=== PATIENT | female | born 1960 | race Caucasian/White ===

== ENCOUNTER 2019-01-04 18:44 | Inpatient (IN) | payer MEDICAID, OTHER ==
[~2019-01-04] VITALS: Ht 152.4 cm; Wt 75.0 kg
[2019-01-04] MEDS ORDERED: ONDANSETRON 4 MG INJ IV STA ×2 (18:52→19:26)
[2019-01-04] MEDS ORDERED: SOD CHLORIDE 0.9% 1,000 ML IV STA (18:52)
[2019-01-04] MEDS ORDERED: morphine 4 MG/ML VIAL IV STA ×2 (18:52→19:26)
--- NOTE | 2019-01-04 18:53 | ERD ---
ER Documentation Chief Complaint Chief Complaint severe left sided flank pain x1hr ago acute gradual; denies dysuria/hematur HPI 58-year-old female presenting with severe left-sided flank pain that started about 1 hour ago. She states that it started in her left lower quadrant then suddenly went to her back. Pain is severe, stabbing, with no alleviating factors. Rated at a 10 out of 10. Worse with deep inspiration. No chest pain, shortness of breath, cough, recent illness, fever, chills, dysuria or hematuria. Has a remote history of right-sided kidney stones. ROS All systems reviewed and are negative except as per history of present illness. PMhx/Soc History of Surgery: Yes ( x1) Anesthesia Reaction: No Hx Neurological Disorder: No Hx Respiratory Disorders: No Hx Cardiac Disorders: No Hx Psychiatric Problems: No Hx Miscellaneous Medical Probl: Yes (rt sided kidney stone many years ago) Hx Alcohol Use: No Hx Substance Use: No Hx Tobacco Use: No Smoking Status: Never smoker FmHx Family History: No diabetes Physical Exam Vitals Vital Signs Date Temp Pulse Resp B/P (MAP) Pulse Ox O2 O2 Flow FiO2 Time Delivery Rate 01/04/19 70 22 64/ 96 Nasal 2.0 20:13 Cannula 01/04/19 97.7 81 26 132/76 100 18:48 (94) Physical Exam Const: Significant distress secondary to pain, pale Head: Atraumatic Eyes: Normal Conjunctiva ENT: Normal External Ears, Nose and Mouth. Neck: Full range of motion. No meningismus. Resp: Clear to auscultation bilaterally Cardio: Regular rate and rhythm, no murmurs 2+ distal pulses in all 4 e xtremities Abd: Soft, left mid abdomen tender to deep palpation. No rebound or guarding. No pulsatile masses., non distended. Normal bowel sounds Skin: No petechiae or rashes Back: Left CVA tenderness Ext: No cyanosis, or edema Neur: Awake and alert, moving all extremities, normal speech, no facial asymmetry Psych: Normal Mood and Affect Result Diagram: 01/04/19185801/04/191858 Results 24 hrs Laboratory Tests Test 01/04/19 18:59 01/04/19 19:33 White Blood Count 5.9 10^3/ul Red Blood Count 4.07 10^6/ul Hemoglobin 12.2 g/dl Hematocrit 36.7 % Mean Corpuscular Volume 90.2 fl Mean Corpuscular Hemoglobin 30.0 pg Mean Corpuscular Hemoglobin Concent 33.2 g/dl Red Cell Distribution Width 13.2 % Platelet Count 418 10^3/UL Mean Platelet Volume 8.5 fl Immature Granulocytes % 0.300 % Neutrophils % 45.1 % Lymphocytes % 43.1 % Monocytes % 8.5 % Eosinophils % 2.2 % Basophils % 0.8 % Nucleated Red Blood Cells % 0.0 /100WBC Immature Granulocytes # 0.020 10^3/ul Neutrophils # 2.7 10^3/ul Lymphocytes # 2.6 10^3/ul Monocytes # 0.5 10^3/ul Eosinophils # 0.1 10^3/ul Basophils # 0.1 10^3/ul Nucleated Red Blood Cells # 0.0 10^3/ul Sodium Level 138 mmol/L Potassium Level 3.4 mmol/L Chloride Level 106 mmol/L Carbon Dioxide Level 26 mmol/L Anion Gap 6 Blood Urea Nitrogen 21 mg/dl Creatinine 0.60 mg/dl Est Glomerular Filtrat Rate mL/min > 60 mL/min Glucose Level 95 mg/dl Calcium Level 9.4 mg/dl Urine Color YELLOW Urine Clarity SLIGHTLY CLOUDY Urine pH 5.0 Urine Specific [place] 1.019 Urine Ketones NEGATIVE mg/dL Urine Nitrite NEGATIVE mg/dL Urine Bilirubin NEGATIVE mg/dL Urine Urobilinogen NEGATIVE mg/dL Urine Leukocyte Esterase 2+ Calixto/ul Urine Microscopic RBC 2 /HPF Urine Microscopic WBC 7 /HPF Urine Squamous Epithelial Cells FEW /HPF Urine Bacteria FEW /HPF Urine Mucus MODERATE /HPF Urine Hemoglobin NEGATIVE mg/dL Urine Glucose NEGATIVE mg/dL Urine Total Protein NEGATIVE mg/dl Current Medications Medications Dose Sig/Sarah Start Time Status Last (Trade) Ordered Route PRN Stop Time Admin Dose Reason Admin Sodium 1,000 ml @ Q1H STAT 01/04/19 DC 01/04/19 Chloride 1,000 mls/hr IV 18:52 18:57 01/04/19 19:51 Morphine 4 mg ONCE STAT 01/04/19 DC 01/04/19 Sulfate IV 18:52 18:56 (morphine) 01/04/19 18:53 Ondansetron 4 mg ONCE STAT 01/04/19 DC 01/04/19 HCl (Zofran IV 18:52 18:56 Inj) 01/04/19 18:53 Morphine 4 mg ONCE STAT 01/04/19 DC 01/04/19 Sulfate IV 19:26 19:32 (morphine) 01/04/19 19:27 Ondansetron 4 mg ONCE STAT 01/04/19 DC 01/04/19 HCl (Zofran IV 19:26 19:31 Inj) 01/04/19 19:27 1 mg ONCE STAT 01/04/19 DC 01/04/19 Hydromorphone IV 19:59 20:02 HCl 01/04/19 20:00 (Dilaudid) Procedures/MDM EMERGENT LABS AND DIAGNOSTIC STUDIES: Lab Results above were reviewed and interpreted by me. CBC: Borderline thrombocytosis, likely stress response. No anemia or evidence of infection BMP: No evidence of electrolyte abnormality, renal failure, hypoglycemia UA: hematuria. 2+ leuk esterase but no bacteria or white blood cells 12-lead EKG was interpreted by Rahel Disla MD: Normal Sinus Rhythm Normal axis Normal intervals No acute ST or T wave changes suggestive of acute ischemia or STEMI. Radiology Results as interpreted by Radiology below were reviewed by Rafal Disla MD: CT abdomen and pelvis: 1. Obstruction of the left ureter at the ureteropelvic junction by a large irregular stone with a long axis of 12 mm and short axis of 7-8 mm. 2. Distended gallbladder without definite evidence of inflammation. 3. Intrauterine contraceptive device in typical position. Initial Nursing notes reviewed. Previous Medical Records requested via the Electronic Health Record. EMERGENCY DEPARTMENT COURSE / MEDICAL DECISION MAKING: Patient is presenting with acute left flank pain and CT that shows a large stone in her UPJ. I do not suspect associated pyelonephritis. She did receive multiple doses of pain medications without improvement of her symptoms. At this point, I do not feel she is appropriate for discharge as her pain is not well controlled. I spoke with the hospitalist on-call, who agreed to admit the patient. He requested consultation by the urologist on-call, . This was done. Departure Diagnosis: Primary Impression: Hydronephrosis due to obstruction of ureter Additional Impressions: Renal colic on left side Intractable pain Condition: AKILA Huggins MD Jan 04, 2019 18:53
[2019-01-04] MEDS ORDERED: HYDROmorphONE 2 MG/ML SYG IV STA (19:59)
[2019-01-04] MEDS ORDERED: KETOROLAC 30 MG INJ IV STA (20:28)
[2019-01-04] MEDS ORDERED: ACETAMINOPHEN 325 MG TAB PO PRN (21:00)
[2019-01-04] MEDS ORDERED: ONDANSETRON 4 MG INJ IV PRN (21:00)
[2019-01-04 21:30] VITALS: BP 132/66; PULSE 79; RESP 18
[2019-01-04 21:42] VITALS: Ht 152.4 cm; Wt 75.0 kg
[2019-01-04 21:47] VITALS: BP 132/65; PULSE 74; RESP 18
[2019-01-04] MEDS ORDERED: morphine 4 MG/ML VIAL IV PRN (23:00)
--- NOTE | 2019-01-04 23:34 | HP ---
Date/Time of Note Date/Time of Note DATE: 01/04/19 TIME: 23:34 Assessment/Plan VTE Prophylaxis Risk score (from Nsg)>0 risk: 1 SCD applied (from Nsg): Yes Pharmacological prophylaxis: heparin Lines/Catheters IV Catheter Type (from Nrsg): Saline Lock Assessment/Plan Assessment/Plan 1. Large obstructive left ureteral stone -IV fluid -Pain management -Flomax -Strain urine -Urology consult -Follow-up urine culture 2. Left flank pain, secondary to above 3. Distended gallbladder: Incidental finding. Per CT no definite evidence of inflammation -Monitor for now -Consider surgical consult Result Diagram: 01/04/19185801/04/191858 Results 24hrs Laboratory Tests Test 01/04/19 18:59 01/04/19 19:33 White Blood Count 5.9 Red Blood Count 4.07 L Hemoglobin 12.2 Hematocrit 36.7 L Mean Corpuscular Volume 90.2 Mean Corpuscular Hemoglobin 30.0 Mean Corpuscular Hemoglobin Concent 33.2 Red Cell Distribution Width 13.2 Platelet Count 418 H Mean Platelet Volume 8.5 Immature Granulocytes % 0.300 Neutrophils % 45.1 Lymphocytes % 43.1 Monocytes % 8.5 Eosinophils % 2.2 Basophils % 0.8 Nucleated Red Blood Cells % 0.0 Immature Granulocytes # 0.020 Neutrophils # 2.7 Lymphocytes # 2.6 Monocytes # 0.5 Eosinophils # 0.1 Basophils # 0.1 Nucleated Red Blood Cells # 0.0 Sodium Level 138 Potassium Level 3.4 L Chloride Level 106 Carbon Dioxide Level 26 Anion Gap 6 Blood Urea Nitrogen 21 H Creatinine 0.60 Est Glomerular Filtrat Rate mL/min > 60 Glucose Level 95 Calcium Level 9.4 Urine Color YELLOW Urine Clarity SLIGHTLY CLOUDY A Urine pH 5.0 Urine Specific [place] 1.019 Urine Ketones NEGATIVE Urine Nitrite NEGATIVE Urine Bilirubin NEGATIVE Urine Urobilinogen NEGATIVE Urine Leukocyte Esterase 2+ H Urine Microscopic RBC 2 Urine Microscopic WBC 7 H Urine Squamous Epithelial Cells FEW Urine Bacteria FEW A Urine Mucus MODERATE Urine Hemoglobin NEGATIVE Urine Glucose NEGATIVE Urine Total Protein NEGATIVE HPI/ROS Admit Date/Time Admit Date/Time Jan 04, 2019 at 20:42 Hx of Present Illness This is a 58-year-old female with no significant past medical history who presented to ER complaining of left flank pain which started several hours prior to arrival to the ER. Pain has been severe. Reported nausea, no vomiting. Will present to the ER, CT abdomen/pelvis shows a large obstructive left ureteral stone at the ureteropelvic junction and distended gallbladder without definite evidence of inflammation. PMH/Family/Social Past Medical History Past Surgical History Past Surgical Hx: other (see hpi) Family History Significant Family History: other Social History Smoking Status: Unknown if ever smoked Drug Use: other Exam Constitutional: other (no acute distress) Eyes: EOMI, PERRL Neck: supple Respiratory: normal air movement Cardiovascular: nl pulses Gastrointestinal: soft Extremities: normal pulses Medications Current Medications Ondansetron HCl (Zofran Inj) 4 mg BRIDGE ORDER PRN IV NAUSEA/VOMITING; Start 01/04/19 at 21:00; Stop 01/05/19 at 20:59 Acetaminophen (Tylenol Tab) 650 mg ER BRIDGE PRN PO .MILD PAIN 1-3 OR TEMP; Start 01/04/19 at 21:00; Stop 01/05/19 at 20:59 Morphine Sulfate (morphine) 4 mg Q4H PRN IV SEVERE PAIN LEVEL 7-10 Last administered on 01/04/19at 22:58; Admin Dose 4 MG; Start 01/04/19 at 23:00 Coded Allergies: No Known Allergy (Unverified , 01/05/19) Exam/Review of Systems Vital Signs Vitals Vital Signs Date Temp Pulse Resp B/P (MAP) Pulse Ox O2 O2 Flow FiO2 Time Delivery Rate 01/04/19 97.9 74 18 132/65 98 Room Air 21:47 (87) 01/04/19 2.0 21:07 LUDIN PENG MD Jan 04, 2019 23:34
[2019-01-05] MEDS ORDERED: TAMSULOSIN (SR) 0.4 MG CAP PO ONE
[2019-01-05] MEDS ORDERED: HYDROCODONE/APAP (5/325) TAB PO PRN
[2019-01-05] MEDS ORDERED: NACL 0.9% 3 ML SYG IV SCH
[2019-01-05] MEDS ORDERED: ONDANSETRON 4 MG INJ IV PRN
[2019-01-05] MEDS ORDERED: ALBUTEROL/IPRATROPIUM (NEB) 3 ML AMP HHN PRN
[2019-01-05] MEDS: SOD CHLORIDE 0.9% 1,000 ML IV SCH ×3 (01:21→21:42)
[2019-01-05] MEDS: CEFTRIAXONE 1 GM/50 ML (PMX) 50 ML IVPB SCH ×2 (01:21→23:54)
[2019-01-05] MEDS: HYDROCODONE/APAP (5/325) TAB PO PRN (01:37)
[2019-01-05] MEDS ORDERED: POTASSIUM CHLORIDE (SR) 20 MEQ TAB PO ONE (01:48)
[2019-01-05 02:00] VITALS: BP 113/66; PULSE 77; RESP 18
[2019-01-05 07:47] VITALS: BP 114/56; PULSE 72; RESP 18
[2019-01-05 14:56] VITALS: BP 118/63; PULSE 83; RESP 20
--- NOTE | 2019-01-05 17:08 | CONS ---
Assessment/Plan Assessment/Plan Hospital Course (Demo Recall) 58-year-old female had severe left flank pain with nausea and vomiting on 01/04/2019. She also felt cold sweats. She came in to the emergency room and a CT scan of the abdomen and pelvis was done at that showed: 1. Obstruction of the left ureter at the ureteropelvic junction by a large irregular stone with a long axis of 12 mm and short axis of 7-8 mm. 2. Distended gallbladder without definite evidence of inflammation. 3. Intrauterine contraceptive device in typical position. The patient was therefore admitted and a urological consultation was requested. The patient denies any prior history of kidney stone. She denies any lower urinary tract symptoms. On the examination she has tenderness in the left flank area. The stone that she has is located in the upper ureter and it is large and measures 12 x 7-8 mm. She will need to have a cystoscopy and insertion of JJ stent. And then at a later date she will need either a cystoscopy, left ureteroscopy, laser lithotr ipsy and removal and replacement of the left ureteral JJ stent or extra corporeal shockwave lithotripsy if the stone moves back into the kidney. I did explain to the patient in Urdu with her nurse present in the room that we will put the JJ stent here and then she will have to follow-up with [facility] to remove the stone and also remove the JJ stent. She did understand that and she is agreeable to proceed. Consultation Date/Type/Reason Admit Date/Time Jan 04, 2019 at 20:42 Date of Consultation: Jan 05, 2019 Type of Consult Urology Reason for Consultation Left upper ureteral stone with hydronephrosis Requesting Provider: LUDIN PENG MD Date/Time of Note DATE: 01/05/19 TIME: 16:58 Hx of Present Illness 58-year-old female had severe left flank pain with nausea and vomiting on 01/04/2019. She also felt cold sweats. She came in to the emergency room and a CT scan of the abdomen and pelvis was done at that showed: 1. Obstruction of the left ureter at the ureteropelvic junction by a large irregular stone with a long axis of 12 mm and short axis of 7-8 mm. 2. Distended gallbladder without definite evidence of inflammation. 3. Intrauterine contraceptive device in typical position. The patient was therefore admitted and a urological consultation was requested. The patient denies any prior history of kidney stone. She denies any lower urinary tract symptoms. Constitutional: no complaints, other (Cold sweats on admission) ENT: no complaints Respiratory: no complaints; No wheezing Cardiovascular: no complaints Gastrointestinal: nausea (On admission), vomiting (On admission) Genitourinary: flank pain (Left side); No dysuria, No hematuria Musculoskeletal: no complaints Skin: no complaints Neurologic: no complaints Endocrine: no complaints Psychological: no complaints Past Medical History Medications Current Medications Ondansetron HCl (Zofran Inj) 4 mg BRIDGE ORDER PRN IV NAUSEA/VOMITING; Start 01/04/19 at 21:00; Stop 01/05/19 at 20:59 Acetaminophen (Tylenol Tab) 650 mg ER BRIDGE PRN PO .MILD PAIN 1-3 OR TEMP; Start 01/04/19 at 21:00; Stop 01/05/19 at 20:59 Morphine Sulfate (morphine) 4 mg Q4H PRN IV SEVERE PAIN LEVEL 7-10 Last administered on 01/04/19at 22:58; Admin Dose 4 MG; Start 01/04/19 at 23:00 Sodium Chloride 1,000 ml @ 100 mls/hr Q10H IV Last administered on 01/05/19at 11:44; Admin Dose 100 MLS/HR; Start 01/04/19 at 23:31 IV Flush (NS 3 ml) 3 ml PER PROTOCOL IV ; Start 01/05/19 at 00:00 Ondansetron HCl (Zofran Inj) 4 mg Q6H PRN IV NAUSEA/VOMITING; Start 01/05/19 at 00:00 Acetaminophen (Tylenol Tab) 650 mg Q6H PRN PO .PAIN 1-3 OR TEMP; Start 01/05/19 at 00:00 Acetaminophen/ Hydrocodone Bitart ([place] (5/325)) 1 tab Q6H PRN PO .MOD PAIN 4- 6; Start 01/05/19 at 00:00 Acetaminophen/ Hydrocodone Bitart ([place] (5/325)) 2 tab Q6H PRN PO .SEVERE PAIN 7-10 Last administered on 01/05/19at 01:37; Admin Dose 2 TAB; Start 01/05/19 at 00:00 Albuterol/ Ipratropium (Duoneb) 3 ml Q2H RESP THERAPY PRN HHN SHORTNESS OF BREATH; Start 01/05/19 at 00:00 Ceftriaxone Sodium 50 ml @ 100 mls/hr Q24H IVPB Last administered on 01/05/19at 01:21; Admin Dose 100 MLS/HR; Start 01/05/19 at 00:00 Allergies: Coded Allergies: Unknown: Unable to obtain (Unverified , 01/04/19) Past Surgical History Past Surgical Hx: other ( x1) Social History Alcohol Use: none Smoking Status: Current every day smoker (2 cigarettes a day) Drug Use: none Other Social History She is a 4, para 4, 1 and 3 normal deliveries Exam/Review of Systems Exam Vitals Vital Signs Date Temp Pulse Resp B/P (MAP) Pulse Ox O2 O2 Flow FiO2 Time Delivery Rate 01/05/19 98.2 83 20 118/63 96 Room Air 14:56 (81) 01/04/19 2.0 21:07 Intake and Output 01/04/19 01/04/19 01/05/19 1515:00 23:00 07:00 IntakeIntake Total 200 ml 50 ml OutputOutput Total 200 ml BalanceBalance 0 ml 50 ml Constitutional: alert, oriented Psych: no complaints Head: normocephalic Eyes: nl conjunctiva ENMT: nl external ears & nose Neck: supple Respiratory: normal air movement; No wheezing Cardiovascular: regular rate and rhythm; No jugular venous distention (JVD) Gastrointestinal: soft, non-tender Genitourinary - Female: CVA tenderness (Left flank), other (The patient does have an IUD but she had no periods since age 52.) Results Result Diagram: 01/05/19 0444 01/05/19 0444 Results 24hrs Laboratory Tests Test 01/04/19 18:59 01/04/19 19:33 01/05/19 04:44 White Blood Count 5.9 7.2 # Red Blood Count 4.07 L 3.63 L Hemoglobin 12.2 10.9 L Hematocrit 36.7 L 33.2 L Mean Corpuscular Volume 90.2 91.5 Mean Corpuscular Hemoglobin 30.0 30.0 Mean Corpuscular 33.2 32.8 Hemoglobin Concent Red Cell Distribution Width 13.2 13.2 Platelet Count 418 H 362 Mean Platelet Volume 8.5 8.7 Immature Granulocytes % 0.300 0.400 Neutrophils % 45.1 77.1 H Lymphocytes % 43.1 17.2 Monocytes % 8.5 4.9 Eosinophils % 2.2 0.1 Basophils % 0.8 0.3 Nucleated Red Blood Cells % 0.0 0.0 Immature Granulocytes # 0.020 0.030 Neutrophils # 2.7 5.6 Lymphocytes # 2.6 1.2 Monocytes # 0.5 0.4 Eosinophils # 0.1 0.0 Basophils # 0.1 0.0 Nucleated Red Blood Cells # 0.0 0.0 Sodium Level 138 141 Potassium Level 3.4 L 4.6 Chloride Level 106 112 H Carbon Dioxide Level 26 25 Anion Gap 6 4 L Blood Urea Nitrogen 21 H 18 Creatinine 0.60 0.56 Est Glomerular Filtrat > 60 > 60 Rate mL/min Glucose Level 95 109 Calcium Level 9.4 8.7 Urine Color YELLOW Urine Clarity SLIGHTLY CLOUDY A Urine pH 5.0 Urine Specific [place] 1.019 Urine Ketones NEGATIVE Urine Nitrite NEGATIVE Urine Bilirubin NEGATIVE Urine Urobilinogen NEGATIVE Urine Leukocyte Esterase 2+ H Urine Microscopic RBC 2 Urine Microscopic WBC 7 H Urine Squamous FEW Epithelial Cells Urine Bacteria FEW A Urine Mucus MODERATE Urine Hemoglobin NEGATIVE Urine Glucose NEGATIVE Urine Total Protein NEGATIVE Phosphorus Level 4.2 Magnesium Level 1.9 Total Bilirubin 0.3 Direct Bilirubin 0.00 Indirect Bilirubin 0.3 Aspartate Amino 17 Transf (AST/SGOT) Alanine 21 Aminotransferase (ALT/SGPT) Alkaline Phosphatase 80 Total Protein 6.1 Albumin 3.2 L Globulin 2.90 Albumin/Globulin Ratio 1.[address] scan of the abdomen and pelvis: 1. Obstruction of the left ureter at the ureteropelvic junction by a large irregular stone with a long axis of 12 mm and short axis of 7-8 mm. 2. Distended gallbladder without definite evidence of inflammation. 3. Intrauterine contraceptive device in typical position. Medications Medication Current Medications Ondansetron HCl (Zofran Inj) 4 mg BRIDGE ORDER PRN IV NAUSEA/VOMITING; Start 01/04/19 at 21:00; Stop 01/05/19 at 20:59 Acetaminophen (Tylenol Tab) 650 mg ER BRIDGE PRN PO .MILD PAIN 1-3 OR TEMP; Start 01/04/19 at 21:00; Stop 01/05/19 at 20:59 Morphine Sulfate (morphine) 4 mg Q4H PRN IV SEVERE PAIN LEVEL 7-10 Last administered on 01/04/19at 22:58; Admin Dose 4 MG; Start 01/04/19 at 23:00 Sodium Chloride 1,000 ml @ 100 mls/hr Q10H IV Last administered on 01/05/19at 11:44; Admin Dose 100 MLS/HR; Start 01/04/19 at 23:31 IV Flush (NS 3 ml) 3 ml PER PROTOCOL IV ; Start 01/05/19 at 00:00 Ondansetron HCl (Zofran Inj) 4 mg Q6H PRN IV NAUSEA/VOMITING; Start 01/05/19 at 00:00 Acetaminophen (Tylenol Tab) 650 mg Q6H PRN PO .PAIN 1-3 OR TEMP; Start 01/05/19 at 00:00 Acetaminophen/ Hydrocodone Bitart ([place] (5/325)) 1 tab Q6H PRN PO .MOD PAIN 4- 6; Start 01/05/19 at 00:00 Acetaminophen/ Hydrocodone Bitart ([place] (5/325)) 2 tab Q6H PRN PO .SEVERE PAIN 7-10 Last administered on 01/05/19at 01:37; Admin Dose 2 TAB; Start 01/05/19 at 00:00 Albuterol/ Ipratropium (Duoneb) 3 ml Q2H RESP THERAPY PRN HHN SHORTNESS OF BREATH; Start 01/05/19 at 00:00 Ceftriaxone Sodium 50 ml @ 100 mls/hr Q24H IVPB Last administered on 01/05/19at 01:21; Admin Dose 100 MLS/HR; Start 01/05/19 at 00:00 WANDA PATINO MD Jan 05, 2019 17:08
--- NOTE | 2019-01-05 17:23 | PN ---
Date/Time of Note Date/Time of Note DATE: 01/05/19 TIME: 17:21 Assessment/Plan VTE Prophylaxis Risk score (from Ns)>0 risk: 1 SCD applied (from [facility] [place]): Yes Pharmacological prophylaxis: NA/contraindicated Pharm contraindication: low risk/ambulating Lines/Catheters IV Catheter Type (from [facility]): Peripheral IV Urinary Cath still in place: No Assessment/Plan Hospital Course 1. Left sided nephrolithiasis -IV fluid -Pain management -Flomax -Strain urine -Urology consult initiated, patient will require a cystoscopy and insertion of a JJ stent -Follow-up urine culture 2. Normocytic anemia -Monitor 3. UTI secondary to obstruction -Rocephin 4. Distended gallbladder: Incidental finding. Per CT no definite evidence of inflammation -Monitor for now Prophylaxis: SCDs Result Diagram: 01/05/194 01/05/194 Results 24hrs Laboratory Tests Test 01/04/19 18:59 01/04/19 19:33 01/05/19 04:44 White Blood Count 5.9 7.2 # Red Blood Count 4.07 L 3.63 L Hemoglobin 12.2 10.9 L Hematocrit 36.7 L 33.2 L Mean Corpuscular Volume 90.2 91.5 Mean Corpuscular Hemoglobin 30.0 30.0 Mean Corpuscular 33.2 32.8 Hemoglobin Concent Red Cell Distribution Width 13.2 13.2 Platelet Count 418 H 362 Mean Platelet Volume 8.5 8.7 Immature Granulocytes % 0.300 0.400 Neutrophils % 45.1 77.1 H Lymphocytes % 43.1 17.2 Monocytes % 8.5 4.9 Eosinophils % 2.2 0.1 Basophils % 0.8 0.3 Nucleated Red Blood Cells % 0.0 0.0 Immature Granulocytes # 0.020 0.030 Neutrophils # 2.7 5.6 Lymphocytes # 2.6 1.2 Monocytes # 0.5 0.4 Eosinophils # 0.1 0.0 Basophils # 0.1 0.0 Nucleated Red Blood Cells # 0.0 0.0 Sodium Level 138 141 Potassium Level 3.4 L 4.6 Chloride Level 106 112 H Carbon Dioxide Level 26 25 Anion Gap 6 4 L Blood Urea Nitrogen 21 H 18 Creatinine 0.60 0.56 Est Glomerular Filtrat > 60 > 60 Rate mL/min Glucose Level 95 109 Calcium Level 9.4 8.7 Urine Color YELLOW Urine Clarity SLIGHTLY CLOUDY A Urine pH 5.0 Urine Specific [place] 1.019 Urine Ketones NEGATIVE Urine Nitrite NEGATIVE Urine Bilirubin NEGATIVE Urine Urobilinogen NEGATIVE Urine Leukocyte Esterase 2+ H Urine Microscopic RBC 2 Urine Microscopic WBC 7 H Urine Squamous FEW Epithelial Cells Urine Bacteria FEW A Urine Mucus MODERATE Urine Hemoglobin NEGATIVE Urine Glucose NEGATIVE Urine Total Protein NEGATIVE Phosphorus Level 4.2 Magnesium Level 1.9 Total Bilirubin 0.3 Direct Bilirubin 0.00 Indirect Bilirubin 0.3 Aspartate Amino 17 Transf (AST/SGOT) Alanine 21 Aminotransferase (ALT/SGPT) Alkaline Phosphatase 80 Total Protein 6.1 Albumin 3.2 L Globulin 2.90 Albumin/Globulin Ratio 1.10 Subjective 24 Hr Interval Summary Genitourinary: flank pain Exam/Review of Systems Exam Vitals Vital Signs Date Temp Pulse Resp B/P (MAP) Pulse Ox O2 O2 Flow FiO2 Time Delivery Rate 01/05/19 98.2 83 20 118/63 96 Room Air 14:56 (81) 01/04/19 2.0 21:07 Intake and Output 01/04/19 01/04/19 01/05/19 1515:00 23:00 07:00 IntakeIntake Total 200 ml 50 ml OutputOutput Total 200 ml BalanceBalance 0 ml 50 ml Constitutional: alert, oriented Respiratory: clear to auscultation Cardiovascular: regular rate and rhythm Gastrointestinal: soft; No distended Musculoskeletal: nl extremities to inspection Results Results 24hrs Laboratory Tests Test 01/04/19 18:59 01/04/19 19:33 01/05/19 04:44 White Blood Count 5.9 7.2 # Red Blood Count 4.07 L 3.63 L Hemoglobin 12.2 10.9 L Hematocrit 36.7 L 33.2 L Mean Corpuscular Volume 90.2 91.5 Mean Corpuscular Hemoglobin 30.0 30.0 Mean Corpuscular 33.2 32.8 Hemoglobin Concent Red Cell Distribution Width 13.2 13.2 Platelet Count 418 H 362 Mean Platelet Volume 8.5 8.7 Immature Granulocytes % 0.300 0.400 Neutrophils % 45.1 77.1 H Lymphocytes % 43.1 17.2 Monocytes % 8.5 4.9 Eosinophils % 2.2 0.1 Basophils % 0.8 0.3 Nucleated Red Blood Cells % 0.0 0.0 Immature Granulocytes # 0.020 0.030 Neutrophils # 2.7 5.6 Lymphocytes # 2.6 1.2 Monocytes # 0.5 0.4 Eosinophils # 0.1 0.0 Basophils # 0.1 0.0 Nucleated Red Blood Cells # 0.0 0.0 Sodium Level 138 141 Potassium Level 3.4 L 4.6 Chloride Level 106 112 H Carbon Dioxide Level 26 25 Anion Gap 6 4 L Blood Urea Nitrogen 21 H 18 Creatinine 0.60 0.56 Est Glomerular Filtrat > 60 > 60 Rate mL/min Glucose Level 95 109 Calcium Level 9.4 8.7 Urine Color YELLOW Urine Clarity SLIGHTLY CLOUDY A Urine pH 5.0 Urine Specific [place] 1.019 Urine Ketones NEGATIVE Urine Nitrite NEGATIVE Urine Bilirubin NEGATIVE Urine Urobilinogen NEGATIVE Urine Leukocyte Esterase 2+ H Urine Microscopic RBC 2 Urine Microscopic WBC 7 H Urine Squamous FEW Epithelial Cells Urine Bacteria FEW A Urine Mucus MODERATE Urine Hemoglobin NEGATIVE Urine Glucose NEGATIVE Urine Total Protein NEGATIVE Phosphorus Level 4.2 Magnesium Level 1.9 Total Bilirubin 0.3 Direct Bilirubin 0.00 Indirect Bilirubin 0.3 Aspartate Amino 17 Transf (AST/SGOT) Alanine 21 Aminotransferase (ALT/SGPT) Alkaline Phosphatase 80 Total Protein 6.1 Albumin 3.2 L Globulin 2.90 Albumin/Globulin Ratio 1.10 Medications Medication Current Medications Ondansetron HCl (Zofran Inj) 4 mg BRIDGE ORDER PRN IV NAUSEA/VOMITING; Start 01/04/19 at 21:00; Stop 01/05/19 at 20:59 Acetaminophen (Tylenol Tab) 650 mg ER BRIDGE PRN PO .MILD PAIN 1-3 OR TEMP; Start 01/04/19 at 21:00; Stop 01/05/19 at 20:59 Morphine Sulfate (morphine) 4 mg Q4H PRN IV SEVERE PAIN LEVEL 7-10 Last administered on 01/04/19at 22:58; Admin Dose 4 MG; Start 01/04/19 at 23:00 Sodium Chloride 1,000 ml @ 100 mls/hr Q10H IV Last administered on 01/05/19at 11:44; Admin Dose 100 MLS/HR; Start 01/04/19 at 23:31 IV Flush (NS 3 ml) 3 ml PER PROTOCOL IV ; Start 01/05/19 at 00:00 Ondansetron HCl (Zofran Inj) 4 mg Q6H PRN IV NAUSEA/VOMITING; Start 01/05/19 at 00:00 Acetaminophen (Tylenol Tab) 650 mg Q6H PRN PO .PAIN 1-3 OR TEMP; Start 01/05/19 at 00:00 Acetaminophen/ Hydrocodone Bitart ([place] (5/325)) 1 tab Q6H PRN PO .MOD PAIN 4- 6; Start 01/05/19 at 00:00 Acetaminophen/ Hydrocodone Bitart ([place] (5/325)) 2 tab Q6H PRN PO .SEVERE PAIN 7-10 Last administered on 01/05/19at 01:37; Admin Dose 2 TAB; Start 01/05/19 at 00:00 Albuterol/ Ipratropium (Duoneb) 3 ml Q2H RESP THERAPY PRN HHN SHORTNESS OF B REATH; Start 01/05/19 at 00:00 Ceftriaxone Sodium 50 ml @ 100 mls/hr Q24H IVPB Last administered on 01/05/19at 01:21; Admin Dose 100 MLS/HR; Start 01/05/19 at 00:00 KOURTNEY VERMA Jan 05, 2019 17:23
[2019-01-05 21:10] VITALS: BP 130/61; PULSE 79; RESP 18
[2019-01-06] VITALS (14 sets, daily range): BP systolic 114–140; BP diastolic 59–82; PULSE 73–92; RESP 14–21
[2019-01-06] MEDS: SOD CHLORIDE 0.9% 1,000 ML IV SCH ×3 (05:31→22:50)
--- NOTE | 2019-01-06 09:25 | PREAC ---
Date/Time of Note Date/Time of Note DATE: 01/06/19 TIME: 09: Anesthesia Eval and Record Evaluation Time Pre-Procedure Interview DATE: 01/06/19 TIME: 09:21 Age 58 Sex female NPO: 8 hrs Preoperative diagnosis left ureteral stone Planned procedure cystoscopy and L ureteral JJ stent Past Medical History Past Medical History: Includes Pulm: Smoking Hx (2 cigs a day/ last smoked Sunday ) Renal: Other (left ureteral stones, left flank pain, UTI secondary to stones) Heme: Anemia Surgery & Anesthesia Issues No known issue (never had GA) Meds Anticoagulation: No Beta Alex within 24 hr: No Reason Beta Alex not given: Pt. not on B-Alex Current Medications Morphine Sulfate (morphine) 4 mg Q4H PRN IV SEVERE PAIN LEVEL 7-10 Last administered on 01/04/19at 22:58; Admin Dose 4 MG; Start 01/04/19 at 23:00 Sodium Chloride 1,000 ml @ 100 mls/hr Q10H IV Last administered on 01/05/19at 21:42; Admin Dose 100 MLS/HR; Start 01/04/19 at 23:31 IV Flush (NS 3 ml) 3 ml PER PROTOCOL IV ; Start 01/05/19 at 00:00 Ondansetron HCl (Zofran Inj) 4 mg Q6H PRN IV NAUSEA/VOMITING; Start 01/05/19 at 00:00 Acetaminophen (Tylenol Tab) 650 mg Q6H PRN PO .PAIN 1-3 OR TEMP; Start 01/05/19 at 00:00 Acetaminophen/ Hydrocodone Bitart ([place] (5/325)) 1 tab Q6H PRN PO .MOD PAIN 4- 6; Start 01/05/19 at 00:00 Acetaminophen/ Hydrocodone Bitart ([place] (5/325)) 2 tab Q6H PRN PO .SEVERE PAIN 7-10 Last administered on 01/05/19at 01:37; Admin Dose 2 TAB; Start 01/05/19 at 00:00 Albuterol/ Ipratropium (Duoneb) 3 ml Q2H RESP THERAPY PRN HHN SHORTNESS OF BREATH; Start 01/05/19 at 00:00 Ceftriaxone Sodium 50 ml @ 100 mls/hr Q24H IVPB Last administered on 01/05/19at 23:54; Admin Dose 100 MLS/HR; Start 01/05/19 at 00:00 Meds reviewed: Yes Allergies Coded Allergies: No Known Allergy (Unverified , 01/05/19) Allergies Reviewed: Yes Labs/Studies Labs Reviewed: Reviewed by anesthesiologist Result Diagram: 01/06/19 0439 01/06/19 0439 Laboratory Tests 01/06/19 04:39 test: N/A Studies: ECG (NSR prolonged QTI) Pre-procedure Exam Last vitals Vital Signs Date Temp Pulse Resp B/P (MAP) Pulse Ox O2 O2 Flow FiO2 Time Delivery Rate 01/06/19 98.0 73 18 114/76 99 Room Air 07:27 (89) 01/04/19 2.0 21:07 Airway: Adequate mouth opening, Adequate thyromental dist Mallampati: Mallampati II Teeth: Normal Lung: Normal Heart: Normal ASA Physical Status ASA physical status: 2 Emergency: E Planned Anesthetic General/MAC: LMA Planned Pain Management Parenteral pain med, Local by surgeon Pre-operative Attestations Prior to commencing anesthesia and surgery, the patient was re-evaluated, there was verification of: *The patient's identity *The results of appropriate recent lab work and preoperative vital signs *The above evaluation not changing prior to induction *Anesthetic plan, risk benefits, alternative and complications discussed with patient/family; questions answered; patient/family understands, accepts and wishes to proceed. JASWANT BAUMAN Jan 06, 2019 09:25
[2019-01-06] MEDS ORDERED: OXYCODONE/ACETAMINOPHEN (5/325) TAB PO PRN ×2 (09:30)
[2019-01-06] MEDS ORDERED: FENTAnyl 50 MCG/ML VIAL IV PRN ×3 (09:30)
[2019-01-06] MEDS ORDERED: MEPERIDINE 25 MG INJ IV PRN (09:30)
[2019-01-06] MEDS ORDERED: ONDANSETRON 4 MG INJ IV PRN (09:30)
[2019-01-06] MEDS ORDERED: ALBUTEROL 0.083% (NEB) 2.5 MG/3 ML AMP HHN PRN (09:30)
[2019-01-06] MEDS ORDERED: MIDAZOLAM 1 MG/ML 2 ML INJ IV PRN (09:30)
--- NOTE | 2019-01-06 12:12 | HPN ---
Date/Time of Note Date/Time of Note DATE: 01/06/19 TIME: 12:11 Interval H&P Admission Note Pt. seen H&P reviewed: No system changes Again I have explained to the patient that we will put a JJ stent on the left side and that she would have to follow-up with [facility] for removal of the stone and JJ stent WANDA PATINO MD Jan 06, 2019 12:12
[2019-01-06] MEDS ORDERED: MIDAZOLAM 1 MG/ML 2 ML INJ ONE (12:22)
[2019-01-06] MEDS ORDERED: LIDOCAINE 2% (SDV) 5 ML INJ ONE (12:22)
[2019-01-06] MEDS ORDERED: PROPOFOL 20 ML ONE (12:22)
[2019-01-06] MEDS ORDERED: FENTAnyl 50 MCG/ML VIAL ONE (12:22)
[2019-01-06] MEDS ORDERED: CEFAZOLIN 1 GM INJ ONE (12:48)
[2019-01-06] MEDS ORDERED: ONDANSETRON 4 MG INJ ONE (12:56)
[2019-01-06] MEDS ORDERED: DEXAMETHASONE 4 MG/ML 5 ML INJ ONE (12:57)
--- NOTE | 2019-01-06 13:20 | OPR ---
Date/Time of Note Date/Time of Note DATE: 01/06/19 TIME: 13:15 Operative Report Procedure Date: Jan 06, 2019 Preoperative Diagnosis Left upper ureteral stone with obstruction Postoperative Diagnosis Same Operation/Procedure Performed Cystoscopy and insertion of left ureteral JJ stent 6 Greek by 22 cm long Surgeon see signature line Blueprint Cutter geological technician Anesthesia Type: general Anesthesiologist: JASWANT BAUMAN Estimated Blood Loss: none Transfusion none Specimen Urine for culture and sensitivity Grafts/Implants 6 Greek by 22 cm long JJ stent Complications none Pt Condition Post Procedure: stable Disposition: PACU Indications Left upper ureteral stone with obstruction Procedure Description The patient was brought to the operating room and given general anesthesia. The patient was positioned in the lithotomy position. Timeout was done and the patient was identified by her name, birthdate, the procedure and the side of the procedure. She was given 2 g of Ancef IV at the start of the procedure. Then the patient was prepped and draped in the usual sterile manner. #21 Greek cystoscope sheath was introduced into the bladder and urine was collected for culture and sensitivity. Spot films were taken from the bladder up to the kidney and the stone on the left side was visualized. The left ureteral orifice was then visualized and cannulated then a 0.035 zip wire was passed into the left ureter all the way up to the kidney. Then a 6 Greek by 22 cm long JJ stent was advanced on the zip wire and had its proximal and curling into the kidney and the distal end curling into the bladder. As the JJ stent was inserted the stone moved from the upper ureter back into the kidney. The bladder was then emptied and the patient was transferred to the recovery room in a stable and satisfactory condition. WANDA PATINO MD Jan 06, 2019 13:20
--- NOTE | 2019-01-06 13:23 | PAC ---
Date/Time of Note Date/Time of Note DATE: 01/06/19 TIME: 13:22 Post-Anesthesia Notes Post-Anesthesia Note Last documented vital signs PACU vitals BP 125/73 RR 16 SPo2 100% HR 76 Temp 97.9 Vital Signs Date Temp Pulse Resp B/P (MAP) Pulse Ox O2 O2 Flow FiO2 Time Delivery Rate 01/06/19 98.0 73 18 114/76 99 Room Air 07:27 (89) 01/04/19 2.0 21:07 Activity: WNL Respiratory function: WNL Cardiovascular function: WNL Mental status: Baseline Pain reasonably controlled: Yes Hydration appropriate: Yes Nausea/Vomiting absent: Yes JASWANT BAUMAN Jan 06, 2019 13:23
--- NOTE | 2019-01-06 13:54 | PN ---
Date/Time of Note Date/Time of Note DATE: 01/06/19 TIME: 13:53 Assessment/Plan VTE Prophylaxis Risk score (from Ns)>0 risk: 2 SCD applied (from Ns): Yes Pharmacological prophylaxis: heparin Lines/Catheters IV Catheter Type (from [facility]): Peripheral IV Urinary Cath still in place: No Assessment/Plan Hospital Course 1. Left sided nephrolithiasis -IV fluid -Pain management -Flomax -Strain urine -Urology consult initiated, patient will require a cystoscopy and insertion of a JJ stent -Follow-up urine culture 2. Normocytic anemia -Monitor 3. UTI secondary to obstruction -Rocephin 4. Distended gallbladder: Incidental finding. Per CT no definite evidence of inflammation -Monitor for now Result Diagram: 01/06/199 01/06/199 Results 24hrs Laboratory Tests Test 01/05/19 17:26 01/06/19 04:39 Prothrombin Time 12.9 Prothrombin Time Ratio 1.0 INR International Normalized Ratio 0.96 Activated Partial Thromboplast Time 28.4 White Blood Count 4.8 # Red Blood Count 3.61 L Hemoglobin 10.9 L Hematocrit 32.9 L Mean Corpuscular Volume 91.1 Mean Corpuscular Hemoglobin 30.2 Mean Corpuscular Hemoglobin Concent 33.1 Red Cell Distribution Width 13.4 Platelet Count 346 Mean Platelet Volume 9.0 Immature Granulocytes % 0.600 H Neutrophils % 51.3 Lymphocytes % 39.5 Monocytes % 6.6 Eosinophils % 1.4 Basophils % 0.6 Nucleated Red Blood Cells % 0.0 Immature Granulocytes # 0.030 Neutrophils # 2.5 Lymphocytes # 1.9 Monocytes # 0.3 Eosinophils # 0.1 Basophils # 0.0 Nucleated Red Blood Cells # 0.0 Sodium Level 141 Potassium Level 4.0 Chloride Level 110 Carbon Dioxide Level 25 Anion Gap 6 Blood Urea Nitrogen 13 Creatinine 0.54 Est Glomerular Filtrat Rate mL/min > 60 Glucose Level 91 Calcium Level 8.8 Subjective 24 Hr Interval Summary Free Text/Dictation Feels well, pain resolved Awaiting cystoscopy Exam/Review of Systems Exam Vitals Vital Signs Date Temp Pulse Resp B/P (MAP) Pulse Ox O2 O2 Flow FiO2 Time Delivery Rate 01/06/19 97.9 76 14 125/73 100 Mask 8.0 13:15 (90) Intake and Output 01/05/19 01/05/1919 1515:00 23:00 07:00 IntakeIntake Total 200 ml 1000 ml 850 ml OutputOutput Total 300 ml BalanceBalance -100 ml 1000 ml 850 ml Constitutional: alert, oriented, well developed Psych: no complaints, nl mood/affect Head: normocephalic, atraumatic Eyes: nl conjunctiva, EOMI, nl lids, nl sclera, PERRL ENMT: nl external ears & nose, nl lips & teeth, nl nasal mucosa & septum Neck: supple, non-tender Respiratory: clear to auscultation, normal air movement Cardiovascular: regular rate and rhythm, nl pulses Gastrointestinal: soft, nl liver, spleen, non-tender Musculoskeletal: nl extremities to inspection, nl gait and stance Extremities: normal pulses Neurological: ONCOLOGY CONSULTANT II-XII intact, nl mental status, nl speech, nl strength Skin: nl turgor; No rash or lesions Lymph: nl lymph nodes Results Results 24hrs Laboratory Tests Test 01/05/19 17:26 01/06/19 04:39 Prothrombin Time 12.9 Prothrombin Time Ratio 1.0 INR International Normalized Ratio 0.96 Activated Partial Thromboplast Time 28.4 White Blood Count 4.8 # Red Blood Count 3.61 L Hemoglobin 10.9 L Hematocrit 32.9 L Mean Corpuscular Volume 91.1 Mean Corpuscular Hemoglobin 30.2 Mean Corpuscular Hemoglobin Concent 33.1 Red Cell Distribution Width 13.4 Platelet Count 346 Mean Platelet Volume 9.0 Immature Granulocytes % 0.600 H Neutrophils % 51.3 Lymphocytes % 39.5 Monocytes % 6.6 Eosinophils % 1.4 Basophils % 0.6 Nucleated Red Blood Cells % 0.0 Immature Granulocytes # 0.030 Neutrophils # 2.5 Lymphocytes # 1.9 Monocytes # 0.3 Eosinophils # 0.1 Basophils # 0.0 Nucleated Red Blood Cells # 0.0 Sodium Level 141 Potassium Level 4.0 Chloride Level 110 Carbon Dioxide Level 25 Anion Gap 6 Blood Urea Nitrogen 13 Creatinine 0.54 Est Glomerular Filtrat Rate mL/min > 60 Glucose Level 91 Calcium Level 8.8 Medications Medication Current Medications Morphine Sulfate (morphine) 4 mg Q4H PRN IV SEVERE PAIN LEVEL 7-10 Last administered on 01/04/19at 22:58; Admin Dose 4 MG; Start 01/04/19 at 23:00 Sodium Chloride 1,000 ml @ 100 mls/hr Q10H IV Last administered on 01/06/19at 09:28; Admin Dose 100 MLS/HR; Start 01/04/19 at 23:31 IV Flush (NS 3 ml) 3 ml PER PROTOCOL IV ; Start 01/05/19 at 00:00 Ondansetron HCl (Zofran Inj) 4 mg Q6H PRN IV NAUSEA/VOMITING; Start 01/05/19 at 00:00 Acetaminophen (Tylenol Tab) 650 mg Q6H PRN PO .PAIN 1-3 OR TEMP; Start 01/05/19 at 00:00 Acetaminophen/ Hydrocodone Bitart ([place] (5/325)) 1 tab Q6H PRN PO .MOD PAIN 4- 6; Start 01/05/19 at 00:00 Acetaminophen/ Hydrocodone Bitart ([place] (5/325)) 2 tab Q6H PRN PO .SEVERE PAIN 7-10 Last administered on 01/05/19at 01:37; Admin Dose 2 TAB; Start 01/05/19 at 00:00 Albuterol/ Ipratropium (Duoneb) 3 ml Q2H RESP THERAPY PRN HHN SHORTNESS OF B REATH; Start 01/05/19 at 00:00 Ceftriaxone Sodium 50 ml @ 100 mls/hr Q24H IVPB Last administered on 01/05/19at 23:54; Admin Dose 100 MLS/HR; Start 01/05/19 at 00:00 Fentanyl (Sublimaze) 25 mcg PACU ORDER PRN IV MILD PAIN 1-3; Start 01/06/19 at 09:30; Stop 01/06/19 at 14:00 Fentanyl (Sublimaze) 50 mcg PACU ORDER PRN IV MOD PAIN 4-6; Start 01/06/19 at 09:30; Stop 01/06/19 at 14:00 Fentanyl (Sublimaze) 75 mcg PACU ORDER PRN IV SEVERE PAIN 7-10; Start 01/06/19 at 09:30; Stop 01/06/19 at 14:00 Oxycodone/ Acetaminophen (Percocet (5/ 325)) 1 tab PACU ORDER PRN PO .PAIN 1-5; Start 01/06/19 at 09:30; Stop 01/06/19 at 14:00 Oxycodone/ Acetaminophen (Percocet (5/ 325)) 2 tab PACU ORDER PRN PO .PAIN 6-10; Start 01/06/19 at 09:30; Stop 01/06/19 at 14:00 Ondansetron HCl (Zofran Inj) 4 mg PACU ORDER PRN IV NAUSEA/VOMITING; Start 01/06/19 at 09:30; Stop 01/06/19 at 14:00 Albuterol (Proventil 0.083% ([place])) 2.5 mg PACU ORDER PRN HHN .WHEEZING; Start 01/06/19 at 09:30; Stop 01/06/19 at 14:00 Meperidine HCl (Demerol) 25 mg PACU ORDER PRN IV .RIGORS; Start 01/06/19 at 09:30; Stop 01/06/19 at 14:00 Midazolam HCl (Versed) 0.5 mg PACU ORDER PRN IV .ANXIETY; Start 01/06/19 at 09:30; Stop 01/06/19 at 14:00 GRETEL TOVAR MD Jan 06, 2019 13:54
[2019-01-06] MEDS: ACETAMINOPHEN 325 MG TAB PO PRN (15:42)
--- NOTE | 2019-01-06 18:56 | OPR ---
Date/Time of Note Date/Time of Note DATE: 01/06/19 TIME: 18:51 Operative Report Procedure Date: Jan 06, 2019 Preoperative Diagnosis Distal right ureteral stone Postoperative Diagnosis Same Operation/Procedure Performed Cystoscopy, right ureteroscopy, laser lithotripsy and insertion of right ureteral JJ stent 6 Malaysian by 22 cm long Surgeon see signature line Surface Grinder Balaji Metcalf Anesthesia Type: general Anesthesiologist: DIONISIO AVITIA MD Estimated Blood Loss: none Transfusion none Specimen Stone fragments from distal right ureter Grafts/Implants Right ureteral JJ stent 6 Malaysian by 22 cm long Complications none Pt Condition Post Procedure: stable Disposition: PACU Indications Distal right ureteral stone Procedure Description The patient was brought to the operating room and general anesthesia was induced. The patient received 2 g of Ancef IV at the start of the procedure. Timeout was done and the patient was identified by her name,birthdate and the procedure and the side of the procedure. The patient was then positioned in the lithotomy position and the genital area was prepped and draped in the usual sterile manner. A 21 Malaysian cystoscope sheath was introduced into the bladder and urine was collected for culture and sensitivity. Right ureteral orifice was identified and then cannulated with a 5 Malaysian open ended ureteral catheter. A 0.035 zip wire was advanced through the open ended catheter all the way up to the kidney. The open-ended was removed leaving the zip wire in place. The open-ended was then introduced through the second working channel of the scope and the ureteral orifice was cannulated again and a 0.035 sensor wire was passed all the way up to the kidney. The open-ended was removed leaving the sensor wire in place. Then the cystoscope was removed. The sensor wire was used as a safety wire and the zip wire was used to advance the rigid ureteroscope on it into the ureter. The stone was then visualized and broken with the holmium laser into pieces. These pieces were basketed and dropped into the bladder until the ureter was free of stone fragments. The ureteroscope was then removed. Cystoscopy was done again and the stone fragments were drained out of the bladder. Then the cystoscope was reintroduced into the bladder over the safety wire and a 6 Malaysian by 22 cm long JJ stent was advanced on the sensor wire, had its proximal end curling into the kidney and the distal end curling into the bladder. The distal end is connected to a string that was taped to the patient's right groin. The patient was transferred to recovery room in stable and satisfactory condition WANDA PATINO MD Jan 06, 2019 18:56
[2019-01-06] MEDS: CEFTRIAXONE 1 GM/50 ML (PMX) 50 ML IVPB SCH (23:49)
[2019-01-07] MEDS: HYDROCODONE/APAP (5/325) TAB PO PRN (00:43)
[2019-01-07 00:55] VITALS: BP 116/70; PULSE 70; RESP 18
[2019-01-07] MEDS: ACETAMINOPHEN 325 MG TAB PO PRN (05:39)
[2019-01-07 06:15] VITALS: BP 131/71; PULSE 58; RESP 20
[2019-01-07 07:36] VITALS: BP 136/70; PULSE 64; RESP 15
--- NOTE | 2019-01-07 08:03 | CONS ---
Consult Date/Type/Reason Admit Date/Time Jan 05, 2019 at 06:55 Initial Consult Date 01/05/19 Type of Consultation: Urology Reason for Consultation Left renal stone Requesting Provider: LUDIN PENG MD Date/Time of Note DATE: 01/07/19 TIME: 08:00 Subjective Patient has mild pain. Objective Vitals Vital Signs Date Temp Pulse Resp B/P (MAP) Pulse Ox O2 O2 Flow FiO2 Time Delivery Rate 01/07/19 99.1 64 15 136/70 100 Room Air 07:36 (92) 01/06/19 8.0 13:26 Intake and Output 01/06/19 01/06/19 01/07/19 1515:00 23:00 07:00 IntakeIntake Total 800 ml 2300 ml 700 ml OutputOutput Total 0 ml BalanceBalance 800 ml 2300 ml 700 ml Exam Abdomen is soft, there is no flank tenderness. Results/Medications Result Diagram: 01/06/19 0439 01/06/19 0439 Medications Current Medications Morphine Sulfate (morphine) 4 mg Q4H PRN IV SEVERE PAIN LEVEL 7-10 Last administered on 01/04/19at 22:58; Admin Dose 4 MG; Start 01/04/19 at 23:00 Sodium Chloride 1,000 ml @ 100 mls/hr Q10H IV Last administered on 01/06/19at 22:50; Admin Dose 100 MLS/HR; Start 01/04/19 at 23:31 IV Flush (NS 3 ml) 3 ml PER PROTOCOL IV ; Start 01/05/19 at 00:00 Ondansetron HCl (Zofran Inj) 4 mg Q6H PRN IV NAUSEA/VOMITING; Start 01/05/19 at 00:00 Acetaminophen (Tylenol Tab) 650 mg Q6H PRN PO .PAIN 1-3 OR TEMP Last administered on 01/07/19at 05:39; Admin Dose 650 MG; Start 01/05/19 at 00:00 Acetaminophen/ Hydrocodone Bitart ([place] (5/325)) 1 tab Q6H PRN PO .MOD PAIN 4- 6; Start 01/05/19 at 00:00 Acetaminophen/ Hydrocodone Bitart ([place] (5/325)) 2 tab Q6H PRN PO .SEVERE PAIN 7-10 Last administered on 01/07/19at 00:43; Admin Dose 2 TAB; Start 01/05/19 at 00:00 Albuterol/ Ipratropium (Duoneb) 3 ml Q2H RESP THERAPY PRN HHN SHORTNESS OF BREATH; Start 01/05/19 at 00:00 Ceftriaxone Sodium 50 ml @ 100 mls/hr Q24H IVPB Last administered on 01/06/19at 23:49; Admin Dose 100 MLS/HR; Start 01/05/19 at 00:00 Assessment/Plan Hospital Course (Demo Recall) 58-year-old female had severe left flank pain with nausea and vomiting on 01/04/2019. She also felt cold sweats. She came in to the emergency room and a CT scan of the abdomen and pelvis was done at that showed: 1. Obstruction of the left ureter at the ureteropelvic junction by a large irregular stone with a long axis of 12 mm and short axis of 7-8 mm. 2. Distended gallbladder without definite evidence of inflammation. 3. Intrauterine contraceptive device in typical position. The patient underwent a cystoscopy and insertion of left ureteral JJ stent on 01/06/2019. The stone has moved into the kidney from the upper ureter. Her pain is mild and could be controlled with oral pain medications. She may be discharged today. I gave the nurse a copy of the operative report and the CT scan report to give to the patient upon discharge. Also I instructed the patient again that she should go to [facility] to have the stone broken and the JJ stent removed. I will ask the supportive employment case manager to give her the address and phone number of [facility]. WANDA PATINO MD Jan 07, 2019 08:03
[2019-01-07] MEDS: SOD CHLORIDE 0.9% 1,000 ML IV SCH (09:33)
--- NOTE | 2019-01-07 16:10 | DS ---
Date/Time of Note Date/Time of Note DATE: 01/07/19 TIME: 16:09 Discharge Summary Admission/Discharge Info Admit Date/Time Jan 05, 2019 at 06:55 Discharge Date/Time Jan 07, 2019 at 14:44 Discharge Diagnosis Nephrolithiasis Patient Condition: Stable Hospital Course [place] found to have left sided nephrolithiasis -IV fluids were give and so was Flomax -Strain urine -Urology was consulted and the patient underwent cystoscopy and insertion of a JJ stent - Rocephin was given for UTI Home Meds No Active Prescriptions or Reported Meds Primary Care Provider Care Physician No Primary GRETEL TOVAR MD Jan 07, 2019 16:10
== END 2019-01-07 14:44 | disposition home or self-care (01) | DRG 694 ==
LOC: E/R 18:44 → MS1 20:42 → CANRESERV 21:02 → MS1 21:21 → OBSVTOIN 01-05 06:55
PROVIDERS: ADMIT Internal Medicine; ATTEND Internal Medicine
PROC: 0T777DZ Dilation of Left Ureter with Intraluminal Device, Via Natural or Artificial Opening (ICD-10-PCS; principal; 2019-01-06 12:30)
DX: N13.2 Hydronephrosis with renal and ureteral calculous obstruction (principal); Z97.5 Presence of (intrauterine) contraceptive device; Z72.0 Tobacco use; N39.0 Urinary tract infection, site not specified
CPT/HCPCS: 36415; 71045; 74176; 74430; 80048; 80053; 81001; 83735; 84100; 85025; 85610; 85730; 87086; 93005; 96374; 96375; 96376; C2617; G0378; J0690; J0696; J1100; J1170; J1885; J2250; J2270; J2405; J3010; J7030